=== PATIENT | female | born 1945 | race Caucasian/White ===

== ENCOUNTER 2025-08-14 15:36 | Observation (INO) | payer MEDICARE, BC, SELFPAY ==
[2025-08-14] VITALS (11 sets, daily range): BP systolic 61–118; BP diastolic 30–68; BMI 29.6; BMI 31.1
--- NOTE | 2025-08-14 13:21 | ED.GENMED ---
History of Present Illness
<Paul Holbrook DO - Last Filed: 08/14/25 15:59>
General
Chief Complaint: Back Pain
Time Seen by Provider: 08/14/25 13:07
<Andrea Blackwell PA-C - Last Filed: 08/14/25 14:45>
General
Source: patient and spouse
History of Present Illness
History of Present Illness:
79-year-old female with past medical history of DVT/PE, recent extensive back surgery done 3 weeks ago at [facility] presenting to the ER with for evaluation of pain across the middle portion of her back described to be at
the level of the scapula radiating towards her right leg, unable to take deep inspiration secondary to the pain. Denies any fevers, chills, rigors, nausea or vomiting, abdominal pain, chest pain, current shortness of breath. Notes last time she
had surgery she developed DVT/PE, currently anticoagulated on 2-1/2 mg of Eliquis which she reports good compliance with. Denies any focal weakness or numbness. Social history noncontributory. No other concerns presently.
Past History
<Andrea Blackwell PA-C - Last Filed: 08/14/25 14:45>
Past History
ED Past Medical History: Psychiatric and Other (DVT/PE developed postoperatively)
ED Past Surgical History: Gynecological and Orthopedic
Social History
Tobacco: Non-smoker
Alcohol: None
Drug: None
Personal:
Living: with family
Review of Systems
<Andrea Blackwell PA-C - Last Filed: 08/14/25 14:45>
Review of Systems
All Other Systems: ROS reviewed and negative except as documented in HPI and ROS
Phy Exam
<NAHOMI Gutierres Last Filed: 08/14/25 14:45>
Physical Exam
Physical Exam:
GENERAL: Alert , in no apparent distress
VITAL SIGNS: Hypotension noted, during my exam patient's blood pressure was 105/60, no tachycardia
HEAD: Normocephalic atraumatic
EYE: conjunctiva clear
NECK: Supple
ENT: mmm.
CARDIAC: Regular rate and rhythm
LUNGS: Clear breath sounds bilaterally, no acute respiratory distress, no wheezes/rales/rhonchi
NEUROLOGICAL: Alert and oriented
SKIN: Warm and dry, skin intact. Large surgical incision is well-healing, no surrounding erythema, no dehiscence, dry
MUSCULOSKELETAL: well perfused.
PSYCH: Normal and appropriate interaction.
Scores
<Andrea Blackwell PA-C - Last Filed: 08/14/25 14:45>
Heart Failure Risk
Heart Failure Risk Score: Not Applicable
Heart Score for Chest Pain Patients
STEMI patient?: Not applicable
Withdrawal Assessment of Alcohol
Withdrawal Assessment Completed?: Not applicable
Sepsis
<Paul Holbrook DO - Last Filed: 08/14/25 15:59>
Sepsis Screen
Sepsis Screen: Sepsis Ruled Out
Date: 08/14/25
Time: 15:58
<Andrea Blackwell PA-C - Last Filed: 08/14/25 14:45>
Sepsis Screening
Sepsis Assessment: Sepsis Ruled Out
Sepsis Screen
Sepsis Screen: Sepsis Ruled Out
Date: 08/14/25
Time: 14:45
Course
<Paul Holbrook DO - Last Filed: 08/14/25 15:59>
Orders/Labs/Results
Orders:
Orders
08/14/25 13:11
Electrocardiogram (*1) Urgent
Reason for Study: Shortness of Breath
EKG- Treatment ONCE
08/14/25 13:12
CT Chest PE Study Urgent
Comment:
Reason For Exam: scapular pain, recent surgery, hx PE
CMP [Comprehensive Metabolic Panel] Urgent
Complete Blood Count/With Diff Urgent
Blood Culture Urgent
DARVIN Source: Blood/Venous
Specimen Description:
08/14/25 13:38
Electrocardiogram (*1) Stat
Comment: ALREADY DONE ED
08/14/25 13:44
Lactic Acid Q4H
Comment: CANCEL 2nd LACTIC ACID IF 1st LACTIC ACID IS LESS THAN 2
NT-proBNP Urgent
Troponin I Urgent
08/14/25 15:06
Admit/Transfer Patient As Directed
Co-Sign Provider:
Level of Care: Observation services
Assign to:: Telemetry
Physician / Group: ellyn
Diagnosis: back pain
Reason for Telemetry: Other
Other Reason for Telemetry: hypotension
Date to Stop Telemetry: 08/16/25
Time to Stop Telemetry: 11:00
PRN Pain Medication Management As Directed
May give lesser potent ordered pain med per pt: Yes
preference::
Protocol:: Medication orders for pain may be administered in a
manner that supports deferring to patient preference
when the pt is:
- Requesting an ordered lesser potent pain medication.
Least to most potent pain medications are defined
as: acetaminophen < NSAID < tramadol < opioids
(morphine, oxycodone, hydromorphone).
- Requesting a lesser dose of the same medication IF
ORDERED.
- Requesting a less intrusive route of administration
if both routes are prescribed by the provider (PO <
IV).
08/14/25 15:08
Code Status As Directed
Resuscitation Status: Full Code
08/16/25 11:00
DC Protocol for Telemetry ONCE
Abnormal Lab Results
08/14/25
13:12
RBC 3.60 L 10^6/uL
(4.20-5.40)
Hgb 11.0 L g/dL
(12.0-16.0)
Hct 34.7 L %
(37.0-47.0)
MCHC 31.7 L g/dL
(33.0-37.0)
Abs Immat Gran (auto) 0.1 H 10^3/uL
(0-0.05)
Absolute Neuts (auto) 7.1 H 10^3/uL
(1.4-6.5)
Absolute Lymphs (auto) 0.6 L 10^3/uL
(1.2-3.4)
Immature Gran % 0.6 H %
(0-0.5)
Neutrophils % 85.0 H %
(42.2-75.2)
Lymphocytes % 7.0 L %
(20.5-51.1)
BUN 28 H mg/dl
(7-17)
Creatinine 1.3 H mg/dL
(0.6-1.0)
Glucose 201 H mg/dl
(70-99)
08/14/25 13:12
08/14/25 13:12
Vital Signs
Initial and Last Documented VS:
Initial Vital Signs
Pulse Resp BP Pulse Ox
100 20 61/39 99
08/14/25 11:34 08/14/25 11:34 08/14/25 11:34 08/14/25 11:34
Last Documented Vital Signs
Pulse Resp BP Pulse Ox
81 22 105/39 95
08/14/25 14:30 08/14/25 14:30 08/14/25 14:00 08/14/25 14:30
<Andrea Blackwell PA-C - Last Filed: 08/14/25 14:45>
Orders/Labs/Results
Orders:
Orders
08/14/25 13:11
Electrocardiogram (*1) Urgent
Reason for Study: Shortness of Breath
EKG- Treatment ONCE
08/14/25 13:12
CT Chest PE Study Urgent
Comment:
Reason For Exam: scapular pain, recent surgery, hx PE
CMP [Comprehensive Metabolic Panel] Urgent
Complete Blood Count/With Diff Urgent
Blood Culture Urgent
DARVIN Source: Blood/Venous
Specimen Description:
08/14/25 13:38
Electrocardiogram (*1) Stat
Comment: ALREADY DONE ED
08/14/25 13:44
Lactic Acid Q4H
Comment: CANCEL 2nd LACTIC ACID IF 1st LACTIC ACID IS LESS THAN 2
NT-proBNP Urgent
Troponin I Urgent
08/14/25 15:06
Admit/Transfer Patient As Directed
Co-Sign Provider:
Level of Care: Observation services
Assign to:: Telemetry
Physician / Group: ellyn
Diagnosis: back pain
Reason for Telemetry: Other
Other Reason for Telemetry: hypotension
Date to Stop Telemetry: 08/16/25
Time to Stop Telemetry: 11:00
PRN Pain Medication Management As Directed
May give lesser potent ordered pain med per pt: Yes
preference::
Protocol:: Medication orders for pain may be administered in a
manner that supports deferring to patient preference
when the pt is:
- Requesting an ordered lesser potent pain medication.
Least to most potent pain medications are defined
as: acetaminophen < NSAID < tramadol < opioids
(morphine, oxycodone, hydromorphone).
- Requesting a lesser dose of the same medication IF
ORDERED.
- Requesting a less intrusive route of administration
if both routes are prescribed by the provider (PO <
IV).
08/14/25 15:08
Code Status As Directed
Resuscitation Status: Full Code
08/16/25 11:00
DC Protocol for Telemetry ONCE
Abnormal Lab Results
08/14/25
13:12
RBC 3.60 L 10^6/uL
(4.20-5.40)
Hgb 11.0 L g/dL
(12.0-16.0)
Hct 34.7 L %
(37.0-47.0)
MCHC 31.7 L g/dL
(33.0-37.0)
Abs Immat Gran (auto) 0.1 H 10^3/uL
(0-0.05)
Absolute Neuts (auto) 7.1 H 10^3/uL
(1.4-6.5)
Absolute Lymphs (auto) 0.6 L 10^3/uL
(1.2-3.4)
Immature Gran % 0.6 H %
(0-0.5)
Neutrophils % 85.0 H %
(42.2-75.2)
Lymphocytes % 7.0 L %
(20.5-51.1)
BUN 28 H mg/dl
(7-17)
Creatinine 1.3 H mg/dL
(0.6-1.0)
Glucose 201 H mg/dl
(70-99)
08/14/25 13:12
08/14/25 13:12
Vital Signs
Initial and Last Documented VS:
Initial Vital Signs
Pulse Resp BP Pulse Ox
100 20 61/39 99
08/14/25 11:34 08/14/25 11:34 08/14/25 11:34 08/14/25 11:34
Last Documented Vital Signs
Pulse Resp BP Pulse Ox
81 22 105/39 95
08/14/25 14:30 08/14/25 14:30 08/14/25 14:00 08/14/25 14:30
<Andrea Blackwell PA-C - Last Filed: 08/14/25 14:45>
MDM/Problems Addressed
Differential Diagnosis Includes:
DVT/PE
Atypical ACS
Dissection
Muscular back pain
Post op infection
Atelectasis
UTI
Pneumonia
MDM/Problems Addressed:
79-year-old female presenting to the ER for evaluation of upper back pain and right lower extremity pain in the setting of recent extensive back surgery. Called in to see the patient due to patient's hypotension. At time of my exam patient blood
pressure improved albeit still slightly hypotensive. Given patient's history of DVT and PE combined with her presenting symptoms patient was sent directly to CT scan for PE evaluation. Labs and EKG ordered. Disposition pending.
Chronic conditions affecting care: Other (DVT/PE)
<Paul Holbrook DO - Last Filed: 08/14/25 15:59>
*Pulse Oximetry
SaO2: 88
Oxygen Mode of Delivery: Room air
<Andrea Blackwell PA-C - Last Filed: 08/14/25 14:45>
*Radiology
Radiology exam reviewed: radiology read reviewed
*Pulse Oximetry
Patient hypoxic: yes
*EKG
Heart Rate: 80
Rate: normal
Rhythm: sinus
Ischemia: T-wave inversion (V2 and V3)
*Iron Installer Interpretation
Rate: normal
Heart Rate: 87
Rhythm: sinus
*Critical Care Note
Total Time (30-74mins, 75-104mins- exclusive of procedures): Not Applicable
Data Reviewed
Review of Other/Old Records Reveals: Labs and Records
<Andrea Blackwell PA-C - Last Filed: 08/14/25 14:45>
Patient Management
Discussion with other providers: Hospitalist
Escalation/DeEscalation of care consider admission/obs:
Patient work up negative for PE. No identifiable cause of current symptoms however patient remains mildly hypotensive and hypoxic. Will admit for continued monitoring. Hospitalist team notified and accepts
ED Attending Note
<Paul Holbrook, DO - Last Filed: 08/14/25 15:59>
ED Attending Note
Patient seen and examined by attending physician: Yes
I performed the substantive portion of visit, reviewed & personally made and approve the management plan that is documented in note by myself or SHIRLEY.: Yes
ED Attending Note:
I have seen and evaluated the patient with a [id number] encounter. I have spoken to the advance practicer provider and involved in the medical history, the physical exam, medical decision making.
Evaluation and management service: agree unless noted differently below.
Results interpretation: agree unless noted differently below.
Focused HPI: 79-year-old female presenting with right-sided chest pain. I was called to bedside by PA and nursing staff when patient was found to be hypotensive. Patient states she had recent back surgery and has restarted her Eliquis
Physical exam: Mildly uncomfortable. Mild dry mucous membranes. Surgical site of back looks clean and intact
Medical Decision Making: Given history of pulmonary embolism and recent surgery, will obtain CT PE. Will start IV fluids
-
Portions of this chart may have been created with voice recognition software.� Occasional wrong word or��sound alike� substitutions may have occurred due to the inherent limitations of voice recognition software.
Discharge Plan
Departure
Patient Disposition: Admit
Date of Disposition: 08/14/25
Time of Disposition: 14:35
Presentation/result/management discussed w/ accepting MD/DO: Hospitalist
Discharge Problem:
Hypotension, Hypoxia, JOAQUIN (acute kidney injury)
Interventions
Interventions:
*Risk Screen - Suicide Last Done: 08/14/25 11:34
*General Assessment Last Done: 08/14/25 11:34
*Neglect/Abuse Screening Last Done: 08/14/25 12:55
*ED COVID-19 Vaccine History Last Done: 08/14/25 12:55
*ED Influenza Vaccine History Last Done: 08/14/25 12:55
ED-Musculoskeletal Assessment Last Done: 08/14/25 12:55
[2025-08-14 13:36] LABS: Hematocrit 34.7 % (37.0-47.0); Hemoglobin 11.0 g/dL (12.0-16.0); Mean Corp Hgb Conc. 31.7 g/dL (33.0-37.0); Mean Corpuscular Volume 96.4 fL (81.0-99.0); Nucleated Red Blood Cells % 0.4 %; Platelet Count 311 10^3/uL (130-400); Red Cell Dist. Width 14.2 % (11.5-14.5)
[2025-08-14 13:51] LABS: ALT (SGPT) 14 U/L (0-35); AST (SGOT) 19 U/L (14-36); Albumin 4.5 g/dl (3.5-5.0); Alkaline Phosphatase 71 U/L (38-126); Blood Urea Nitrogen 28 mg/dl (7-17); Calcium 8.8 mg/dl (8.4-10.2); Carbon Dioxide 26 mmol/L (22-30); Chloride 101 mmol/L (98-107); Estimated Creatinine Clearance 35 ml/min; Glucose 201 mg/dl (70-99); Potassium 4.2 mmol/L (3.5-5.1); Sodium 137 mmol/L (135-145); Total Protein 7.0 g/dl (6.3-8.2); eGFR 42.09
[2025-08-14 14:31] LABS: Troponin I < 0.012 ng/ml
--- NOTE | 2025-08-14 14:40 | HPS.HSE ---
Addendum entered and electronically signed by Calvin Duron MD 08/14/25 19:15:
Second EKG shows ST depressions in V2 and V3 similar to first EKG. Second troponin is negative. Not concern for acute coronary syndrome at this time.
Addendum entered and electronically signed by Calvin Duron MD 08/14/25 15:45:
This is an addendum to H&P written by My [facility] on 08/14/2025. �Patient seen and examined dependently with [employer].
79-year-old female past medical history of DVT/PE on Eliquis, herniated disks s/p� several spinal fusions over past 5 years, protruded rods s/p redo lumbar fusion 3 weeks ago at [facility], hypothyroidism, anxiety, GERD, presenting
for pain across the middle portion of her back at the level of the scapula rating towards her right leg with decreased inspiration secondary to pain. �No fevers or chills. �No focal weakness or numbness.
Vital signs show initial blood pressure 61/39 and tachycardia of 100. �O2 saturation initially 88% requiring 2 L. �Blood pressure spontaneously improved to 105/39. �EKG shows normal sinus rhythm wit nonspecific T wave changes.
Labs show creatinine 1.3. �Cardiac BNP 172.
CT PE shows no findings to confirm central pulmonary embolism. �Evaluation limited due to extensive metal hardware throughout the thoracic spine. �Slightly prominent caliber right main pulmonary artery.
Patient with scapular pain after recent lumbar fusion. �Patient with initial hypotension which� improved with IV fluids and JOAQUIN possibly prerenal. �Hypoxemia may be secondary to poor inspiration from pain. �IV fluids, blood cultures pending, pain
control with standing Tylenol, lidocaine patch, continue oxycodone and Flexeril, as needed Dilaudid for breakthrough pain.
Original Note:
Family Physician
-
Family Physician: Rudi Frost
Chief Complaint
-
left sided back pain
History of Present Illness
79-year-old female with past medical history of DVT/PE, anxiety, hypothyroidism, GERD recent extensive back surgery (redo lumbar fusion) done 3 weeks ago at [facility] presenting to the ER with for evaluation of pain across
the middle portion of her left side of back underneath her left scapula for past few days to one week. first the pain radiated to her left leg.now the pain is more on her left side of the back. denied chest pain, sob. stated dizzy today. her pain
at times is worse with deep breath. Denies any fevers, chills, rigors, nausea or vomiting, abdominal pain.denied dysuria or hematuria. Notes last time she had surgery she developed DVT/PE, currently anticoagulated on 2-1/2 mg of Eliquis which
she reports good compliance with. Denies any focal weakness or numbness. patient stated poor appetite.
upon arrival patient noted hypotensive and hypoxic. admitting for further management.
Medical History
Past Medical History
Past Medical History: Reports Other
Additional Past Medical History:
DVT/PE, anxiety, hypothyroidism, GERD
Past Surgical History: Reports Other
Additional Past Surgical History:
Partial thyroidectomy, left knee replacement, hysterectomy
Social History
Tobacco: Non-smoker
Alcohol: None
Drug: None
Personal:
Living: With Family
Family History
Family History: Not pertinent
Allergies / Home Medications
Allergies reflects when Allergies were last updated in [employer].
Home Medications with original date entered in [employer]
Allergy/Medication List:
Allergies
Allergy/AdvReac Type Severity Reaction Status Date / Time
No Known Allergies Allergy Unverified 08/14/25 11:35
Home Medications
acetaminophen 325 mg tablet (Tylenol) 650 mg PO Q6HPRN PRN mild pain 08/14/25
apixaban 5 mg tablet (Eliquis) 2.5 mg PO BID 08/14/25
calcium carbonate (Calcium 600) 1,500 mg PO DAILY 08/14/25
cyclobenzaprine 5 mg tablet 5 mg PO BID 08/14/25
escitalopram oxalate 20 mg tablet (Lexapro) 20 mg PO DAILY 08/14/25
levothyroxine 150 mcg tablet (Synthroid) 150 mcg PO HS 08/14/25
loperamide 2 mg capsule 2 mg PO BID 08/14/25
omeprazole 20 mg tablet,delayed release 20 mg PO DAILY 08/14/25
oxycodone 5 mg tablet 5 mg PO BID 08/14/25
vibegron 75 mg tablet (Gemtesa) 75 mg PO DAILY 08/14/25
Review of Systems
-
Constitutional: Reports No Symptoms
EENT: Reports No Symptoms
Respiratory: Reports No Symptoms
Cardiac: Reports No Symptoms
Abdomen/GI: Reports No Symptoms
: Reports No Symptoms
Musculoskeletal: Reports Other (back pain)
Skin: Reports No Symptoms
Neurological: Reports No Symptoms
Endocrine: Reports No Symptoms
Hematologic/Lymphatic: Reports No Symptoms
Psych: Reports No Symptoms
Physical Exam
Vital Signs
Vital Signs
Pulse Resp BP Pulse Ox
81 22 105/39 95
08/14/25 14:30 08/14/25 14:30 08/14/25 14:00 08/14/25 14:30
Physical Exam
General: Well Developed, Well Nourished and No Apparent Distress
HEENT: NormoCephalic, Moist mucous membranes and Atraumatic
Respiratory: Clear
Cardiac: S1/S2 and Regular Rhythm; No Murmur or Rub
GI: Soft, Non Tender, Non Distended and Normal Bowel Sounds; No Organomegaly
Rectal: Deferred by Provider
Musculoskeletal: No Clubbing, No Cyanosis and No Edema
Skin: Rash and Other (incision c/d/I)
Neuro: Nonfocal/grossly intact
Laboratory Results
-
08/14/25 13:12
08/14/25 13:12
Laboratory Results
Lactic Acid Cancelled 08/14/25 17:15
Total Bilirubin 0.9 mg/dl (0.2-1.3) 08/14/25 13:12
AST 19 U/L (14-36) 08/14/25 13:12
ALT 14 U/L (0-35) 08/14/25 13:12
Alkaline Phosphatase 71 U/L (38-126) 08/14/25 13:12
Troponin I < 0.012 ng/ml 08/14/25 13:44
Data Reviewed
-
CT Scan: Report Reviewed by me
Lab Data: Labs Reviewed by me
Impression/Plan
-
# Severe scapular pain likely postop pain
# History lumbar fusion three weeks ago
- CTA negative for PE
- Lidocaine patch, Tylenol
- Oxy and Flexeril continued from home
- Dilaudid for breakthrough pain
- PT/OT consulted
# Acute hypoxia unclear cause likely from poor inspiration from pain
- Continue supplemental oxygen to keep sat greater than 95, wean as tolerated
#EKG concern for NSTEMI
-trop negative, continue to trend Trop
-denied chest pain.
# Acute kidney injury likely chronic/dehydration
- Creatinine 1.3
- Fluids continue
- BMP in the morning
# Hypotension likely hypovolemic
- Fluids continued
- Continue to monitor vital signs
# History of DVT/PE
- Eliquis continued
# Hypothyroidism
- Synthroid continued
# GERD
- PPI continued
# DVT prophylaxis
- Eliquis
# CODE STATUS
- Full code
--- NOTE | 2025-08-14 16:03 | CM ---
CM met [facility] pt bedside
Pt resides with her spouse in a ranc[place] with 2STE
Pt 3 weeks post-op spinal fusion at [facility], current with Ap FAJARDO
Prior to surgery, pt was independent with her ADLs, no ADs, drives
No home O2 baseline
Pt now utilizing a [facility] post-op and spouse assisting her around home and with her ADLs
PCP- Rudi Frost
Rx- DAVID Dash
Discharge Disposition- anticipate home with Ap [facility]N SASCHA, watch for possible higher level needs
[2025-08-14 17:07] LABS: Troponin I < 0.012 ng/ml
[2025-08-14] MEDS: LIDOCAINE 4% PATCH 1 PATCH TOPICAL (17:54)
[2025-08-14] MEDS: TYLENOL 1000 MG PO ×2 (17:54→22:48)
[2025-08-14] MEDS: NSS 1000 IV (17:54)
[2025-08-14 18:03] LABS: Troponin I < 0.012 ng/ml
[2025-08-14] MEDS: FLEXERIL 5 MG PO (20:27)
[2025-08-14] MEDS: ROXICODONE 5 MG PO (20:28)
[2025-08-14] MEDS: IMODIUM 2 MG PO (20:28)
[2025-08-14] MEDS: ELIQUIS 2.5 MG PO (20:28)
[2025-08-14] MEDS: REMOVE LIDOCAINE PATCH 1 PATCH REMOVE (20:30)
[2025-08-14] MEDS: SYNTHROID 150 MCG PO (22:48)
[2025-08-14 23:50] LABS: Troponin I < 0.012 ng/ml
[2025-08-15] VITALS (9 sets, daily range): BP systolic 97–134; BP diastolic 47–66; BMI 31.7
[2025-08-15] MEDS: DILAUDID 0.5 MG IV ×2 (02:57→09:35)
[2025-08-15 05:48] LABS: Hematocrit 29.2 % (37.0-47.0); Hemoglobin 9.4 g/dL (12.0-16.0); Mean Corp Hgb Conc. 32.2 g/dL (33.0-37.0); Mean Corpuscular Volume 94.8 fL (81.0-99.0); Platelet Count 203 10^3/uL (130-400); Red Cell Dist. Width 14.2 % (11.5-14.5)
[2025-08-15 06:13] LABS: Troponin I < 0.012 ng/ml
[2025-08-15 06:24] LABS: Blood Urea Nitrogen 24 mg/dl (7-17); Calcium 8.3 mg/dl (8.4-10.2); Carbon Dioxide 28 mmol/L (22-30); Chloride 106 mmol/L (98-107); Estimated Creatinine Clearance 48 ml/min; Glucose 87 mg/dl (70-99); Potassium 4.1 mmol/L (3.5-5.1); Sodium 138 mmol/L (135-145); eGFR > 60.00
[2025-08-15] MEDS: IMODIUM 2 MG PO ×2 (07:54→20:36)
[2025-08-15] MEDS: TYLENOL 1000 MG PO ×3 (07:54→22:13)
[2025-08-15] MEDS: FLEXERIL 5 MG PO ×2 (07:54→20:33)
[2025-08-15] MEDS: LEXAPRO 20 MG PO (07:55)
[2025-08-15] MEDS: OSCAL CAL 500 1500 MG PO (07:55)
[2025-08-15] MEDS: ELIQUIS 2.5 MG PO ×2 (07:55→20:37)
[2025-08-15] MEDS: NSS 1000 IV ×2 (07:55→20:27)
[2025-08-15] MEDS: ROXICODONE 5 MG PO ×2 (07:55→20:37)
[2025-08-15] MEDS: PROTONIX 40 MG PO (07:55)
[2025-08-15] MEDS: LIDOCAINE 4% PATCH 1 PATCH TOPICAL (07:56)
--- NOTE | 2025-08-15 10:00 | W.PN.HOSP.TC ---
Today's Communication/Plan
-
see outlined plan below
Assessment / Plan
Assessment / Plan
Assessment:
L scapular pain, severe
Recent extension of prior spinal fusion to T3 level - operative date 07/17 (Dr. Kinsey Donnelly - [facility])
- could be post-operative pain, muscular/nerve related pain
- CT-PE study without PE; significant artifact
- reviewed with Radiology; no indication for further imaging as scapula and area was seen on PE study and no acute findings.
- pain control; Tylenol standing, Lidocaine patches, add Gabapentin for possible neuropathic etiology
- prn narcs
- PT/OT
Acute hypoxic respiratory insufficiency
- 2L NC on admission, suspected related to poor effort in setting of back pain
- wean to RA
- CT without acute lung pathology
EKG concern for NSTEMI
- denies CP. Trops negative x 4
Acute kidney injury likely chronic/dehydration
- Creatinine 1.3 to 0.9 after IVF
- follow BMP
Hypotension likely hypovolemic
- Fluids continued
- Continue to monitor vital signs
History of DVT/PE
- Eliquis continued
Hypothyroidism
- Synthroid continued
GERD
- PPI continued
DVT prophylaxis: Eliquis
Code: Full
Anticipated Discharge: 24 - 48 hours
Subjective/Interval History
-
Date of Service: August 15, 2025
reports Left sided scapular/periscapular pain which was at times radiating towards breast and down towards Right leg
Reports no weakness of legs
Objective Data
-
Labs:
Laboratory Results
08/15/25
05:18
WBC 4.4 L
Hgb 9.4 L
Hct 29.2 L
Plt Count 203 D
Sodium 138
Potassium 4.1
Chloride 106
Carbon Dioxide 28
BUN 24 H
Creatinine 0.9
Glucose 87
Calcium 8.3 L
Vital Signs:
Vital Signs
Temp Pulse Resp BP Pulse Ox
97.6 F 59 19 114/57 98
08/15/25 07:00 08/15/25 07:00 08/15/25 07:00 08/15/25 07:00 08/15/25 07:00
I&O
08/14/25 08/15/25 08/16/25
06:59 06:59 06:59
Intake Total 960 / 960
Balance 960 / 960
Physical Exam
-
General: No Apparent Distress
HEENT: Normocephalic and Atraumatic
Respiratory: Negative Wheezes
Cardiac: Regular Rhythm and S1/S2
GI: Soft
Genito-urinary: No Costovertebral Tender
Musculoskeletal: No Edema and Other (incisions C/D/I. L periscapular pain to palpation along inferior margin of scapula bone and soft tissue periscapular)
Neuro: AO x 3
Psych: Calm
Data Reviewed
-
Total Time Spent with Patient (in minutes): 42
Labs: Labs Reviewed by me
[2025-08-15] MEDS: NEURONTIN 100 MG PO ×3 (11:31→22:13)
[2025-08-15] MEDS: REMOVE LIDOCAINE PATCH 1 PATCH REMOVE (20:37)
[2025-08-15] MEDS: SYNTHROID 150 MCG PO (22:13)
[2025-08-16 03:00] VITALS: BP 113/60
[2025-08-16 05:22] VITALS: BMI 32.1
[2025-08-16 06:46] LABS: Hematocrit 28.5 % (37.0-47.0); Hemoglobin 9.1 g/dL (12.0-16.0); Mean Corp Hgb Conc. 31.9 g/dL (33.0-37.0); Mean Corpuscular Volume 94.4 fL (81.0-99.0); Platelet Count 208 10^3/uL (130-400); Red Cell Dist. Width 13.9 % (11.5-14.5)
[2025-08-16 07:00] VITALS: BP 158/70
[2025-08-16 07:12] LABS: Blood Urea Nitrogen 19 mg/dl (7-17); Calcium 8.2 mg/dl (8.4-10.2); Carbon Dioxide 26 mmol/L (22-30); Chloride 110 mmol/L (98-107); Estimated Creatinine Clearance 54 ml/min; Glucose 95 mg/dl (70-99); Potassium 4.0 mmol/L (3.5-5.1); Sodium 140 mmol/L (135-145); eGFR > 60.00
[2025-08-16] MEDS: NEURONTIN 100 MG PO (08:21)
[2025-08-16] MEDS: FLEXERIL 5 MG PO (08:21)
[2025-08-16] MEDS: PROTONIX 40 MG PO (08:22)
[2025-08-16] MEDS: LEXAPRO 20 MG PO (08:22)
[2025-08-16] MEDS: ROXICODONE 5 MG PO (08:22)
[2025-08-16] MEDS: OSCAL CAL 500 1500 MG PO (08:22)
[2025-08-16] MEDS: IMODIUM 2 MG PO (08:22)
[2025-08-16] MEDS: TYLENOL 1000 MG PO (08:22)
[2025-08-16] MEDS: LIDOCAINE 4% PATCH 1 PATCH TOPICAL (08:23)
[2025-08-16] MEDS: NSS 1000 IV (08:25)
[2025-08-16] MEDS: ELIQUIS 2.5 MG PO (08:27)
[2025-08-16 11:00] VITALS: BP 133/57
--- NOTE | 2025-08-16 12:19 | W.PN.HOSP.TC ---
Today's Communication/Plan
-
dc to home today
Assessment / Plan
Assessment / Plan
Assessment:
L scapular pain, severe
Recent extension of prior spinal fusion to T3 level - operative date 07/17 (Dr. Kinsey Donnelly - [facility])
- could be post-operative pain, muscular/nerve related pain
- CT-PE study without PE; significant artifact
- reviewed with Radiology; no indication for further imaging as scapula and area was seen on PE study and no acute findings.
- pain control; Tylenol standing, Lidocaine patches, continue Gabapentin for possible neuropathic etiology
- continue prn Oxycodone. continue Flexeril BID
- PT/OT- home
Acute hypoxic respiratory insufficiency
- 2L NC on admission, suspected related to poor effort in setting of back pain
- wean to RA
- CT without acute lung pathology
EKG concern for NSTEMI
- denies CP. Trops negative x 4
Acute kidney injury likely chronic/dehydration
- Creatinine 1.3 to 0.9 after IVF
- follow BMP
Hypotension likely hypovolemic
- Fluids continued
- Continue to monitor vital signs
History of DVT/PE
- Eliquis continued
Hypothyroidism
- Synthroid continued
GERD
- PPI continued
DVT prophylaxis: Eliquis
Code: Full
More than 30 minutes spent in discharge including
Final examination of the patient
Summarizing hospital stay
Instructions for continuing care to all relevant caregivers
Preparation of discharge records, prescriptions, and referral forms
Total time spent (in minutes): 41
Anticipated Discharge: Today
Subjective/Interval History
-
Date of Service: August 16, 2025
pain improved, denies any worsening
denies any weakness
Objective Data
-
Labs:
Laboratory Results
08/16/25
06:00
WBC 3.0 L
Hgb 9.1 L
Hct 28.5 L
Plt Count 208
Sodium 140
Potassium 4.0
Chloride 110 H
Carbon Dioxide 26
BUN 19 H
Creatinine 0.8
Glucose 95
Calcium 8.2 L
Vital Signs:
Vital Signs
Temp Pulse Resp BP Pulse Ox
98.3 F 70 17 133/57 96
08/16/25 11:00 08/16/25 11:00 08/16/25 11:00 08/16/25 11:00 08/16/25 11:00
I&O
08/15/25 08/16/25 08/17/25
06:59 06:59 06:59
Intake Total 960 / 960 1560 / 1560
Balance 960 / 960 1560 / 1560
Physical Exam
-
General: No Apparent Distress
HEENT: Normocephalic and Atraumatic
Respiratory: Negative Wheezes
Cardiac: Regular Rhythm and S1/S2
GI: Soft and Nontender
Genito-urinary: No Costovertebral Tender
Neuro: AO x 3
Psych: Calm
Data Reviewed
-
Total Time Spent with Patient (in minutes): 42
Labs: Labs Reviewed by me
--- NOTE | 2025-08-16 12:30 | W.DS.TRANS ---
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
-
Discharge Instructions:
Discharge Diagnosis/Procedures muscular/neuropathic back pain, recent T3 spinal
fusion
Diet Regular
Activity As tolerated
Bathing Restrictions None
Instructions:
Stand-Alone Forms:
Changes to Home Medications: No
Discharge Medications:
DC Medications w/original date entered in [employer] [facility]
acetaminophen 325 mg tablet (Tylenol) 650 mg PO Q6HPRN PRN mild pain 08/14/25
apixaban 5 mg tablet (Eliquis) 2.5 mg PO BID 08/14/25
calcium carbonate (Calcium 600) 1,500 mg PO DAILY 08/14/25
escitalopram oxalate 20 mg tablet (Lexapro) 20 mg PO DAILY 08/14/25
levothyroxine 150 mcg tablet (Synthroid) 150 mcg PO HS 08/14/25
loperamide 2 mg capsule 2 mg PO BID 08/14/25
omeprazole 20 mg tablet,delayed release 20 mg PO DAILY 08/14/25
oxycodone 5 mg tablet 5 mg PO BID 08/14/25
vibegron 75 mg tablet (Gemtesa) 75 mg PO DAILY 08/14/25
acetaminophen 500 mg tablet (Tylenol Extra Strength) 1,000 mg (2 x 500 mg) PO TID #100 tabs 08/16/25
cyclobenzaprine 5 mg tablet 5 mg PO BID #30 tabs 08/16/25
gabapentin 100 mg capsule 100 mg PO TID #90 caps 08/16/25
lidocaine 4 % topical patch 2 patch topical DAILY #30 ea 08/16/25
Home Medication Changes
Pending Results: No
Total time spent discharging patient (in min): 42
--- NOTE | 2025-08-16 13:33 | CM ---
Addendum entered by Joanna Birmingham 08/16/25 13:37:
Pt's will drive pt home.
Original Note:
CM met with Amanda and her today; pt is cleared for discharge home with resumption of [facility] today. Resumption referral sent to [facility].
== END 2025-08-16 13:28 | disposition home health service (06) ==
LOC: 3 WEST ACU 15:36
PROVIDERS: Physician Assistant Medical; Registered Nurse; ADMITTING PHYSICIAN Hospitalist; ATTENDING PHYSICIAN Internal Medicine; EMERGENCY PHYSICIAN Student in an Organized Health Care Education/Training Program; FAMILY PHYSICIAN Family Medicine
DX: M54.9 Dorsalgia, unspecified (principal); M54.6 Pain in thoracic spine; M25.512 Pain in left shoulder; I95.9 Hypotension, unspecified; R06.02 Shortness of breath; R09.02 Hypoxemia; R06.89 Other abnormalities of breathing; R07.9 Chest pain, unspecified; N17.9 Acute kidney failure, unspecified; R94.31 Abnormal electrocardiogram [ECG] [EKG]; E03.9 Hypothyroidism, unspecified; F41.9 Anxiety disorder, unspecified; K21.9 Gastro-esophageal reflux disease without esophagitis; M89.8X1 Other specified disorders of bone, shoulder; I10 Essential (primary) hypertension; Z98.1 Arthrodesis status; Z86.718 Personal history of other venous thrombosis and embolism; Z86.711 Personal history of pulmonary embolism; Z79.890 Hormone replacement therapy; Z79.01 Long term (current) use of anticoagulants; Z96.652 Presence of left artificial knee joint; Z90.710 Acquired absence of both cervix and uterus; Z79.891 Long term (current) use of opiate analgesic; Z79.899 Other long term (current) drug therapy
CPT/HCPCS: 71275; 80048; 80053; 83605; 83880; 84484; 85025; 85027; 87040; 93005; 97162; 97166; 99285; Q9967